=== PATIENT | female | born 1995 | race Caucasian/White ===

== ENCOUNTER 2024-10-22 19:02 | Emergency (ER) | payer OTHER, SELFPAY ==
[2024-10-22 19:14] VITALS: BP 110/79; PULSE 78; RESP 16; TEMP 36.7; O2SAT 100
--- NOTE | 2024-10-22 20:07 | ED.SKABFB ---
HPI - Skin/Abscess/Foreign Bdy General Chief complaint: Skin/Abscess/Foreign Body Stated complaint: Wasp Sting Time Seen by Provider: 10/22/24 19:55 Source: patient and RN notes reviewed Mode of arrival: ambulatory Limitations: no limitations History of Present Illness HPI narrative: 29-year-old female presents [facility] complaining of wasp strings yesterday. Patient reports she was stung in her left hand wedding between her left index finger and left thumb. And twice on her right lateral thigh. Since then patient reports redness and swelling to her right thigh along with swelling and redness to the webbing in between her left index finger left thumb. Patient denies any pain reports that is pruritic. Patient denies any chest pain, difficulty breathing, swelling to her face, lips, tongue, throat, difficulty clearing secretions, nausea, vomiting, fevers, or any other symptoms. Patient has tried ibuprofen and ice without relief. Related Data Home Medications ?Medication ?Instructions ?Recorded ?Confirmed ?Last Taken ?Type acyclovir 400 mg tablet mg 10/22/24 Unknown History alprazolam 0.5 mg tablet mg 10/22/24 Unknown History buspirone 7.5 mg tablet mg 10/22/24 Unknown History fluoxetine 20 mg tablet mg 10/22/24 Unknown History valacyclovir 1 gram tablet mg 10/22/24 Unknown History Allergies Allergy/AdvReac Type Severity Reaction Status Date / Time Penicillins Allergy Unknown Other Verified 10/22/24 19:17 Review of Systems Review of Systems: CONSTITUTIONAL: Denies fever, chills, or sweats. EYES: Denies visual changes, redness, or discharge. ENT: Denies rhinorrhea, congestion, sore throat, difficulty clearing secretions, or otalgia. CARDIOVASCULAR: Denies chest pain, palpitations, or edema. RESPIRATORY: Denies cough, wheezing, or dyspnea. GASTROINTESTINAL: Denies abdominal pain, nausea, vomiting, or diarrhea. GENITOURINARY: Denies dysuria or hematuria. SKIN: Denies rash. positive for itching, redness, swelling MUSCULOSKELETAL: Denies back pain, joint pain, or myalgia. NEUROLOGIC: Denies headache, numbness, or weakness. PSYCHIATRIC: Denies anxiety or depression. All other systems reviewed are negative, except as documented in HPI. PMFSH Comments At the time of my signature, I reviewed and agree with the nursing past medical, surgical, social, and family history. There is no relevant family history pertinent to the patient complaint. Exam Narrative: GENERAL: This is a well-nourished, well-developed adult, in no apparent distress. They are non ill-appearing, nontoxic appearing. HEAD: normocephalic, atraumatic. EYES: Sclera clear/white. Conjunctiva normal. Vision is grossly intact. Extraocular movements intact EARS: External ears normal, Hearing grossly intact. NOSE: External nose normal THROAT: Mucous membranes moist, NECK: Neck supple, CARDIOVASCULAR: Regular rate and rhythm RESPIRATORY: Respiratory rate normal, respiratory effort nonlabored, no respiratory distress SKIN: Right thigh: Extensively erythematous throughout the mid and lower lateral thigh. Is nontender to palpate and blanchable. It is pruritic. Two puncture wounds present to the lateral lower mid thigh. No area of fluctuance, no induration, no exudate. It is warm to palpate. Left hand: Is erythematous in between the having of the left index finger and left thumb, 1 puncture wound present. Is nontender to palpate and blanchable, pruritic. Higher fluctuance, no induration, no exudate. Is warm to palpate. NEURO: awake, alert, and oriented to person, place and time. There were no obvious focal neurologic abnormalities. EXTREMITIES: No joint tenderness, effusion, or edema noted. Course Course Emergency Course: Portions of this record may have been created with voice recognition software Level of Care: Express Care Visit Vital Signs Vital signs: Vital Signs Temperature 98.1 F 10/22/24 19:14 Pulse Rate 78 10/22/24 19:14 Respiratory Rate 16 10/22/24 19:14 Blood Pressure 110/79 10/22/24 19:14 Pulse Oximetry 100 10/22/24 19:14 Temperature 98.1 F 10/22/24 19:14 Pulse Rate 78 10/22/24 19:14 Respiratory Rate 16 10/22/24 19:14 Blood Pressure 110/79 10/22/24 19:14 Pulse Oximetry 100 10/22/24 19:14 Reviewed MDM - Skin/Abscess/Foreign Bdy MDM Narrative Medical decision making narrative: Mild erythema and swelling to the left hand. Extensive redness and swelling to the right side, does not appear to be infected. Likely allergic reaction to the wasp sting. Will prescribe the patient a course of prednisone given the amount of redness and swelling. Also patient takes Zyrtec and Pepcid daily for the next week. No evidence of the anaphylaxis. Patient is hemodynamically stable. Patient is no apparent distress or respiratory distress. Discussed physical exam findings. Advised supportive measures and signs/symptoms to go to the ER. Pt is appropriate for outpt treatment and f/u. Differential Diagnosis Differential diagnosis: Likely abscess of skin or subcutaneous tissue, cellulitis, insect bites, contact dermatitis and other (Allergic reaction to insect sting) Critical Care Time Critical Care Time Critical Care Time: No Discharge Plan Discharge Clinical Impression: Allergic reaction to wasp sting Patient Disposition: Home Condition: Stable Instructions: Insect Bite or Sting (ED) Additional Instructions: Take the prednisone as directed. Take it in the morning and take it with food. Take Zyrtec 10 mg daily by mouth for 1 week. Take Pepcid 20 mg by mouth daily for 1 week. You may use calamine lotion, camphor, hydrocortisone cream Benadryl cream as needed for itchiness symptoms. You may also use Benadryl as needed for itchiness symptoms. Benadryl may make you drowsy, do not drive or operate machinery while taking Benadryl. Avoid scratching as it may cause a secondary infection. Wash the area daily with mild soap and water. He may apply cold compresses to the area 20 minutes a few times a day. Follow-up PCP in 3-5 days. If you develop any worsening redness, swelling, discharge, fevers, breathing problems, or any other concerns please go to the ER immediately. Patient Language: Brazilian Prescriptions: New prednisone 20 mg tablet 40 mg PO DAILY 5 Days Qty: 10 0RF No Action valacyclovir 1 gram tablet acyclovir 400 mg tablet alprazolam 0.5 mg tablet fluoxetine 20 mg tablet buspirone 7.5 mg tablet Follow-up/Referrals: Tj Fisher MD [Primary Care Provider, [facility]] Time of Disposition: 20:00
== END 2024-10-22 20:01 | disposition home or self-care (01) ==
PROVIDERS: PCP Family Medicine
DX: T63.461A Toxic effect of venom of wasps, accidental (unintentional), initial encounter (principal)
CPT/HCPCS: 99203; G0463